=== PATIENT | female | born 1990 | race Caucasian/White ===

== ENCOUNTER 2023-06-21 15:48 | Emergency (ER) | payer OTHER, SELFPAY ==
[2023-06-21 15:48] VITALS: BMI 26.9
[2023-06-21 15:50] VITALS: BP 126/88
[2023-06-21 16:15] LABS: % Basophils 0.5 % (0-2); % Eosinophils 0.7 % (0-6); % Immature Granulocytes 0.1 % (0-0.5); % Lymphocytes 37.6 % (20.5-51.1); % Monocytes 6.8 % (1.7-9.3); % Neutrophils 54.3 % (42.2-75.2); Absolute Eosinophils 0.1 10^3/uL (0-0.7); Absolute Lymphocytes 3.3 10^3/uL (1.2-3.4); Absolute Monocytes 0.6 10^3/uL (0.1-0.6); Absolute Neutrophils 4.8 10^3/uL (1.4-6.5); Hemoglobin 13.8 g/dL (12.0-16.0); Mean Corp Hgb Conc. 35.4 g/dL (33.0-37.0); Mean Corpuscular Hgb 32.2 pg (27.0-31.0); Mean Corpuscular Volume 90.9 fL (81.0-99.0); Mean Platelet Volume 9.5 fL (7.4-10.4); Nucleated Red Blood Cells % 0 %; Platelet Count 341 10^3/uL (130-400); Red Blood Cell Count 4.29 10^6/uL (4.20-5.40); Red Cell Dist. Width 12.8 % (11.5-14.5); White Blood Cell Count 8.9 10^3/uL (4.8-10.8)
[2023-06-21 16:18] LABS: Urine Albumin Negative (Neg - Trace); Urine Bilirubin Negative (Negative); Urine Character Clear (Clear); Urine Color Yellow; Urine Glucose Negative (Negative); Urine Ketone Negative (Negative); Urine Leukocyte Negative (Negative); Urine Nitrite Negative (Negative); Urine Occult Blood Negative (Negative); Urine Specific Gravity 1.015 (<1.030); Urine Urobilinogen Negative (Neg - 1+)
[2023-06-21 16:27] LABS: HCG, Serum Qualitative Screen Negative
[2023-06-21 16:30] LABS: ALT (SGPT) 12 U/L (0-35); AST (SGOT) 22 U/L (14-36); Albumin 4.4 g/dl (3.5-5.0); Alkaline Phosphatase 52 U/L (38-126); Blood Urea Nitrogen 14 mg/dl (7-17); Calcium 9.9 mg/dl (8.4-10.2); Carbon Dioxide 25 mmol/L (22-30); Chloride 100 mmol/L (98-107); Glucose 103 mg/dl (70-99); Potassium 4.7 mmol/L (3.5-5.1); Sodium 134 mmol/L (135-145); Total Bilirubin 0.7 mg/dl (0.2-1.3); eGFR > 60.00
[2023-06-21 16:31] LABS: Lipase 168 U/L (23-300)
[2023-06-21] MEDS: OMNIPAQUE 50 ML PO (17:53)
[2023-06-21] MEDS: MORPHINE SULFATE 2 MG IV ×2 (17:55→19:45)
[2023-06-21] MEDS: ZOFRAN 4 MG IV (17:56)
[2023-06-21] MEDS: NSS 500 IV (17:56)
[2023-06-21] MEDS: PROTONIX IV 40 MG IV (17:56)
[2023-06-21 17:59] VITALS: BP 117/73
[2023-06-21 18:00] VITALS: BP 116/67
--- NOTE | 2023-06-21 18:34 | ED.GENMED ---
History of Present Illness
General
Chief Complaint: Abdominal Pain
Source: patient
Exam Limitations: none
Time Seen by Provider: 06/21/23 17:28
Nursing documentation reviewed up to this point in time: agreed with
Travel History
Have you had any contact with someone who has COVID-19?: No
Do you have any symptoms of coronavirus? Fever > 100 degrees, chills, cough, shortness of breath, sore throat, loss of taste or smell, muscle aches, or headache?: No
History of Present Illness
History of Present Illness:
Patient presents to ED secondary to persistent abdominal pain since yesterday afternoon. Abdominal pain described as crampy, around bellybutton, without any alleviating or exacerbating factors. Denies fever or chills. Denies nausea, vomiting, or
diarrhea. Denies trauma. Denies recent illness. Denies recent change in medications or diet. Of note, patient states that she has had ongoing intermittent abdominal pain, blood pressure from today, for the past 6 months. Patient has been
evaluated multiple times by her primary care physician without identification of etiology behind her pain.
Review of Systems
Review of Systems
Allergies reviewed?: Yes
All Other Systems: ROS reviewed and negative except as documented in HPI and ROS
Constitutional: Reports no symptoms
EENT: Reports no symptoms
Respiratory: Reports no symptoms
Cardiac: Reports no symptoms
ABD/GI: Reports abdominal pain; Denies vomiting or diarrhea
Musculoskeletal: Reports no symptoms
Skin: Reports no symptoms
Neurological: Reports no symptoms
Phy Exam
Physical Exam
Physical Exam:
Physical Exam
General: mild painful distress, not acutely ill. afebrile
Head: nc/at. eomi
Neck: supple. no meningeal signs.
Heart: s1/s2 regular rate and rhythm, no murmur. equal radial pulses.
Lungs: no acute respiratory distress. clear bilaterally
Abdomen: normal bowel sounds. mild periumbilical/RLQ tenderness to palpation.
Neuro: alert and oriented. no focal neurological deficits
Skin: no rash
Psychiatric: well kept. interactive and cooperative
Extremities: no edema. no calf tenderness.
Course
Orders/Labs/Results
Orders:
Orders
06/21/23 15:55
Test Result ONCE
06/21/23 16:03
CBC/With Diff [Complete Blood Count/With Diff] Urgent
CMP [Comprehensive Metabolic Panel] Urgent
HCG, Serum Qualitative Screen Urgent
Lipase Urgent
Urinalysis Reflex To Culture Urgent
Date Specimen was Collected: 06/21/23
Time Specimen was Collected: 15:56
06/21/23 17:45
CT Abd/pel W Iv And Oral Contr Urgent
Comment:
Reason For Exam: lower abdominal pain
Iohexol [Omnipaque] See Protocol PO NOW STA
Morphine Sulfate 2 mg IV NOW STA
Ondansetron Injectable [Zofran] 4 mg IV NOW STA
Pantoprazole [Protonix IV] 40 mg IV NOW STA
06/21/23 17:46
0.9% Sodium Chloride 500 ml [Nss] 500 ml IV BOLUS
06/21/23 19:40
Morphine Sulfate 2 mg IV NOW STA
Abnormal Lab Results
06/21/23
16:03
MCH 32.2 H pg
(27.0-31.0)
Sodium 134 L mmol/L
(135-145)
Glucose 103 H mg/dl
(70-99)
06/21/23 16:03
06/21/23 16:03
Vital Signs
Initial and Last Documented VS:
Initial Vital Signs
Temp Pulse Resp BP Pulse Ox
98.3 F 74 18 126/88 100
06/21/23 15:50 06/21/23 15:50 06/21/23 15:50 06/21/23 15:50 06/21/23 15:50
Last Documented Vital Signs
Temp Pulse Resp BP Pulse Ox
98.3 F 82 18 122/76 100
06/21/23 15:50 06/21/23 21:13 06/21/23 17:59 06/21/23 21:13 06/21/23 19:52
MDM/Problems Addressed
MDM/Problems Addressed:
CT scan report reviewed and discussed with patient. Patient states that she has an [employer] physician with whom she can follow-up as an outpatient. As such, patient given copy of blood work, CT report, as well as the actual CT scan on a disc prior
to discharge. Otherwise, patient is afebrile, hemodynamically stable, and nontoxic-appearing at time of discharge.
*Critical Care Note
Total Time (30-74mins, 75-104mins- exclusive of procedures): Not Applicable
ED Attending Note
-
Portions of this chart may have been created with voice recognition software.� Occasional wrong word or��sound alike� substitutions may have occurred due to the inherent limitations of voice recognition software.
Discharge Plan
Departure
Patient Disposition: Home (Routine Discharge)
Date of Disposition: 06/21/23
Time of Disposition: 21:08
Patient with high blood pressure during this ER visit?: Yes
Discharge Problem:
Abdominal pain, Mass of ovary
Instructions: Abdominal Pain
Referrals:
Diana Wick CRNP [Family Provider] -
Activity Restrictions/Additional Instructions:
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
Interventions
Interventions:
*Risk Screen - Suicide Last Done: 06/21/23 15:50
*General Assessment Last Done: 06/21/23 15:50
*Neglect/Abuse Screening Last Done: 06/21/23 15:50
ED- Fall Risk Assessment Last Done: 06/21/23 18:15
*ED COVID-19 Vaccine History Last Done: 06/21/23 15:50
*Nursing Disposition Last Done: 06/21/23 21:13
JP-Blwmkg-Eovyginsjt Assessment Last Done: 06/21/23 18:15
Discharge Date and Time
Discharge Date/Time: 06/21/23 21:13
[2023-06-21 19:51] VITALS: BP 125/77
[2023-06-21 20:48] VITALS: BP 122/76
[2023-06-21 21:13] VITALS: BP 122/76
== END 2023-06-21 21:13 | disposition home or self-care (01) ==
LOC: EMR 15:48
PROVIDERS: Emergency Medicine; EMERGENCY PHYSICIAN Emergency Medicine; FAMILY PHYSICIAN Family Medicine Adult Medicine
DX: R10.33 Periumbilical pain (principal); N83.9 Noninflammatory disorder of ovary, fallopian tube and broad ligament, unspecified; R03.0 Elevated blood-pressure reading, without diagnosis of hypertension
CPT/HCPCS: 99285; 96374; 96375 ×2; 96361; 96376; 74177; 80053; 81003; 83690; 84703; 85025; Q9967

== ENCOUNTER → 2023-09-21 10:34 | Outpatient (REF) | payer OTHER, SELFPAY | LOC: RAD 10:34 | PROVIDERS: ATTENDING PHYSICIAN Urology; FAMILY PHYSICIAN Family Medicine Adult Medicine | DX: N13.4 Hydroureter (principal); R10.9 Unspecified abdominal pain | CPT/HCPCS: 78708; A9539 ==

== ENCOUNTER 2023-10-19 15:20 | Outpatient (RCR) | payer OTHER, SELFPAY | END 2023-10-19 23:59 | disposition home or self-care (01) | LOC: RPT 15:20 | PROVIDERS: ATTENDING PHYSICIAN Urology | DX: M62.89 Other specified disorders of muscle (principal); N81.6 Rectocele; R39.89 Other symptoms and signs involving the genitourinary system; K59.09 Other constipation; R12 Heartburn; Z73.6 Limitation of activities due to disability | CPT/HCPCS: 97140; 97163; 97530 ==

== ENCOUNTER 2023-10-31 14:14 | Outpatient (RCR) | payer OTHER, SELFPAY | END 2023-11-01 13:04 | disposition home or self-care (01) | LOC: RPT 14:14 | PROVIDERS: ATTENDING PHYSICIAN Urology | DX: M62.89 Other specified disorders of muscle (principal); N81.6 Rectocele; R39.89 Other symptoms and signs involving the genitourinary system; K59.09 Other constipation; R12 Heartburn; R10.2 Pelvic and perineal pain; Z73.6 Limitation of activities due to disability | CPT/HCPCS: 97140; 97530 ==

== ENCOUNTER 2023-12-08 06:22 | Outpatient (RCR) | payer OTHER, SELFPAY | END 2023-12-08 23:59 | disposition home or self-care (01) | LOC: RPT 06:22 | PROVIDERS: ATTENDING PHYSICIAN Urology | DX: R10.2 Pelvic and perineal pain (principal); R30.0 Dysuria; M62.89 Other specified disorders of muscle; Z73.6 Limitation of activities due to disability | CPT/HCPCS: 97163; 97530 ==

== ENCOUNTER 2024-02-07 15:01 | Outpatient (RCR) | payer OTHER, SELFPAY | END 2024-02-07 23:59 | disposition home or self-care (01) | LOC: RPT 15:01 | PROVIDERS: ATTENDING PHYSICIAN Urology | DX: R10.2 Pelvic and perineal pain (principal); R30.0 Dysuria; M62.89 Other specified disorders of muscle; Z73.6 Limitation of activities due to disability | CPT/HCPCS: 97110; 97140; 97530 ==

== ENCOUNTER 2024-03-09 09:24 | Outpatient (RCR) | payer OTHER, SELFPAY | END 2024-03-09 23:59 | disposition home or self-care (01) | LOC: RPT 09:24 | PROVIDERS: ATTENDING PHYSICIAN Urology | DX: R10.2 Pelvic and perineal pain (principal); R30.0 Dysuria; M62.89 Other specified disorders of muscle; Z73.6 Limitation of activities due to disability; N81.6 Rectocele | CPT/HCPCS: 97110; 97530 ==

== ENCOUNTER 2024-03-12 06:37 | Day surgery (SDC) | payer OTHER, SELFPAY ==
[2024-03-09 11:05] VITALS: BMI 28.7
[2024-03-09 11:21] LABS: Urine Albumin Negative (Neg - Trace); Urine Bilirubin Negative (Negative); Urine Character Clear (Clear); Urine Color Yellow; Urine Glucose Negative (Negative); Urine Ketone Negative (Negative); Urine Leukocyte Negative (Negative); Urine Nitrite Negative (Negative); Urine Occult Blood Negative (Negative); Urine Specific Gravity 1.015 (<1.030); Urine Urobilinogen Negative (Neg - 1+)
[2024-03-12 11:15] VITALS: BP 100/69
[2024-03-12 11:24] VITALS: BMI 28.7
[2024-03-12] MEDS: EMEND 40 MG PO (11:52)
[2024-03-12] MEDS: TRANSDERM-SCOP 1 PATCH TRANSDERM (11:52)
[2024-03-12 12:28] VITALS: BP 100/69; BP 101/50
[2024-03-12] MEDS: DILAUDID 0.5 MG IV (12:41)
[2024-03-12] MEDS: ZOFRAN 4 MG IV (12:45)
[2024-03-12] MEDS: DILAUDID 0.25 MG IV (13:04)
[2024-03-12] MEDS: Pyridium 200 MG PO (13:09)
[2024-03-12 13:20] VITALS: BP 106/62
[2024-03-12] MEDS: VALIUM 5 MG PO (13:33)
[2024-03-12 13:44] VITALS: BP 108/71
[2024-03-12] MEDS: MOTRIN 600 MG PO (13:47)
[2024-03-12 14:07] VITALS: BP 105/69
== END 2024-03-12 14:20 | disposition home or self-care (01) ==
LOC: SDS 06:37
PROVIDERS: ATTENDING PHYSICIAN Urology; FAMILY PHYSICIAN Student in an Organized Health Care Education/Training Program
PROC: 0T7B8ZZ Dilation of Bladder, Via Natural or Artificial Opening Endoscopic (ICD-10-PCS; 2024-03-12)
DX: N30.10 Interstitial cystitis (chronic) without hematuria (principal)
CPT/HCPCS: 52260; 36415; 81003

== ENCOUNTER 2024-04-24 07:38 | Outpatient (RCR) | payer OTHER, SELFPAY | END 2024-04-24 23:59 | disposition home or self-care (01) | LOC: RPT 07:38 | PROVIDERS: ATTENDING PHYSICIAN Urology; REFERRING PHYSICIAN Obstetrics & Gynecology Gynecology | DX: M62.89 Other specified disorders of muscle (principal); R10.2 Pelvic and perineal pain; K59.00 Constipation, unspecified; N30.10 Interstitial cystitis (chronic) without hematuria; Z73.6 Limitation of activities due to disability | CPT/HCPCS: 97140; 97163; 97530 ==

== ENCOUNTER 2024-05-23 15:06 | Outpatient (RCR) | payer OTHER, SELFPAY | END 2024-05-23 23:59 | disposition home or self-care (01) | LOC: RPT 15:06 | PROVIDERS: ATTENDING PHYSICIAN Urology; REFERRING PHYSICIAN Obstetrics & Gynecology Gynecology | DX: M62.89 Other specified disorders of muscle (principal); R10.2 Pelvic and perineal pain; K59.00 Constipation, unspecified; N30.10 Interstitial cystitis (chronic) without hematuria; Z73.6 Limitation of activities due to disability | CPT/HCPCS: 97140; 97530 ==

== ENCOUNTER 2024-06-08 15:07 | Emergency (ER) | payer OTHER, SELFPAY ==
[2024-06-08 15:10] VITALS: BP 93/59
[2024-06-08 15:15] VITALS: BMI 29.4
[2024-06-08 15:47] LABS: % Basophils 0.8 % (0-2); % Eosinophils 1.1 % (0-6); % Immature Granulocytes 0.6 % (0-0.5); % Lymphocytes 41.3 % (20.5-51.1); % Monocytes 7.8 % (1.7-9.3); % Neutrophils 48.4 % (42.2-75.2); Absolute Basophils 0.1 10^3/uL (0-0.2); Absolute Eosinophils 0.1 10^3/uL (0-0.7); Absolute Lymphocytes 2.7 10^3/uL (1.2-3.4); Absolute Monocytes 0.5 10^3/uL (0.1-0.6); Absolute Neutrophils 3.1 10^3/uL (1.4-6.5); Hematocrit 38.1 % (37.0-47.0); Hemoglobin 13.3 g/dL (12.0-16.0); Mean Corp Hgb Conc. 34.9 g/dL (33.0-37.0); Mean Corpuscular Hgb 32.4 pg (27.0-31.0); Mean Corpuscular Volume 92.7 fL (81.0-99.0); Mean Platelet Volume 9.7 fL (7.4-10.4); Nucleated Red Blood Cells % 0 %; Platelet Count 315 10^3/uL (130-400); Red Blood Cell Count 4.11 10^6/uL (4.20-5.40); Red Cell Dist. Width 13.2 % (11.5-14.5); White Blood Cell Count 6.4 10^3/uL (4.8-10.8)
[2024-06-08 15:52] LABS: ALT (SGPT) 15 U/L (0-35); AST (SGOT) 20 U/L (14-36); Albumin 4.3 g/dl (3.5-5.0); Alkaline Phosphatase 57 U/L (38-126); Blood Urea Nitrogen 11 mg/dl (7-17); Calcium 8.6 mg/dl (8.4-10.2); Carbon Dioxide 22 mmol/L (22-30); Chloride 102 mmol/L (98-107); Estimated Creatinine Clearance 113 ml/min; Glucose 96 mg/dl (70-99); Potassium 4.2 mmol/L (3.5-5.1); Sodium 135 mmol/L (135-145); Total Bilirubin 0.8 mg/dl (0.2-1.3); Total Protein 6.8 g/dl (6.3-8.2); eGFR > 60.00
--- NOTE | 2024-06-08 15:57 | ED.GENMED ---
History of Present Illness
<Hoa Roland, BUTTING SAW OPERATOR - Last Filed: 06/10/24 16:48>
General
Chief Complaint: Chest Pain
Source: patient
Exam Limitations: none
Time Seen by Provider: 06/08/24 15:39
Nursing documentation reviewed up to this point in time: agreed with
History of Present Illness
History of Present Illness:
34-year-old female with history of migraines, MVP, herpes, PTSD, depression, anxiety, pelvic floor dysfunction, rectocele presents for chest pain that radiates through to her back just below the scapula which started 7 PM last evening. It is worse
with movement or deep breaths, it is 7/10 now and she has taken nothing for pain today. She feels nauseous but has not vomited. Her 15-year-old daughter had recent URI. No recent travel.
Past History
<Hoa Roland, BUTTING SAW OPERATOR - Last Filed: 06/10/24 16:48>
Past History
ED Past Medical History: Psychiatric (Anxiety/depression, PTSD), Other (migraines), Other (On Valtrex daily for herpes) and Other (Migraines, pelvic floor dysfunction, rectocele)
ED Past Surgical History: Gynecological
Review of Systems
<Hoa Roland, BUTTING SAW OPERATOR - Last Filed: 06/10/24 16:48>
Review of Systems
Allergies reviewed?: Yes
All Other Systems: ROS reviewed and negative except as documented in HPI and ROS
Constitutional: Denies fever or chills
EENT: Denies sore throat
Respiratory: Denies cough or trouble breathing
Cardiac: Reports chest pain; Denies diaphoresis or palpitations
ABD/GI: Reports nausea; Denies abdominal pain, vomiting or diarrhea
: Denies dysuria, frequency, difficulty voiding or urgency
Musculoskeletal: Reports no symptoms
Skin: Reports no symptoms
Neurological: Reports no symptoms
Phy Exam
<Hoa Roland, BUTTING SAW OPERATOR - Last Filed: 06/10/24 16:48>
Physical Exam
Physical Exam:
GENERAL: No acute distress. A&Ox3.
CONSTITUTIONAL: Afebrile.
EYES: clear, conjunctivae normal
ENMT: moist mucus membranes, Pharynx nl
RESPIRATORY: Regular respirations, nonlabored, lungs clear.
CARDIOVASCULAR: Regular rate and rhythm, no murmurs, no rubs. Left upper chest wall tender to palpate
GI: Soft, nontender, normal BS
MUSCULOSKELETAL: Moves with ease. Well perfused.
SKIN: Warm, dry, pink
PSYCH: Depressed mood and affect. Well kept, interactive and appropriate
NEUROLOGIC: Awake, alert and oriented. No focal neurological deficits
Scores
<MERCEDES VinesNP - Last Filed: 06/08/24 21:29>
Heart Score for Chest Pain Patients
STEMI patient?: Not applicable
Course
<Hoa Roland, BUTTING SAW OPERATOR - Last Filed: 06/10/24 16:48>
Orders/Labs/Results
Orders:
Orders
06/08/24 15:09
Electrocardiogram (*1) Urgent
Reason for Study: Chest Pain
EKG- Treatment ONCE
06/08/24 15:19
Complete Blood Count/With Diff Urgent
Comprehensive Metabolic Panel Urgent
06/08/24 15:40
CR Chest - 2 Views Urgent
Comment:
Reason For Exam: chest pain
06/08/24 15:57
Ketorolac [Toradol] 15 mg IV NOW STA
06/08/24 16:10
COVID-19 Antigen Urgent
Source: Nasal Swab
Troponin I Urgent
Influenza A+B Rapid Molecular Urgent
RICK Source: Nasal Swab
Specimen Description:
06/08/24 16:12
0.9% Sodium Chloride 500 ml [Nss] 500 ml IV BOLUS
06/08/24 18:02
D-Dimer Urgent
06/08/24 18:44
CT Chest PE Study Urgent
Comment:
Reason For Exam: elevated dimer, left upper chest and scapula pain
06/08/24 21:28
Acetaminophen [Tylenol] 1,000 mg PO NOW STA
Abnormal Lab Results
06/08/24 06/08/24
15:19 18:02
RBC 4.11 L 10^6/uL
(4.20-5.40)
MCH 32.4 H pg
(27.0-31.0)
Immature Gran % 0.6 H %
(0-0.5)
D-Dimer 1.04 H ug/mlFEU
(0.00-0.50)
06/08/24 15:19
06/08/24 15:19
Vital Signs
Initial and Last Documented VS:
Initial Vital Signs
Temp Pulse Resp BP Pulse Ox
97.9 F 93 18 93/59 97
06/08/24 15:10 06/08/24 15:10 06/08/24 15:10 06/08/24 15:10 06/08/24 15:10
Last Documented Vital Signs
Temp Pulse Resp BP Pulse Ox
97.9 F 78 17 95/49 100
06/08/24 15:10 06/08/24 17:00 06/08/24 17:00 06/08/24 17:00 06/08/24 17:00
<SYD Vines - Last Filed: 06/08/24 21:29>
Orders/Labs/Results
Orders:
Orders
06/08/24 15:09
Electrocardiogram (*1) Urgent
Reason for Study: Chest Pain
EKG- Treatment ONCE
06/08/24 15:19
Complete Blood Count/With Diff Urgent
Comprehensive Metabolic Panel Urgent
06/08/24 15:40
CR Chest - 2 Views Urgent
Comment:
Reason For Exam: chest pain
06/08/24 15:57
Ketorolac [Toradol] 15 mg IV NOW STA
06/08/24 16:10
COVID-19 Antigen Urgent
Source: Nasal Swab
Troponin I Urgent
Influenza A+B Rapid Molecular Urgent
RICK Source: Nasal Swab
Specimen Description:
06/08/24 16:12
0.9% Sodium Chloride 500 ml [Nss] 500 ml IV BOLUS
06/08/24 18:02
D-Dimer Urgent
06/08/24 18:44
CT Chest PE Study Urgent
Comment:
Reason For Exam: elevated dimer, left upper chest and scapula pain
06/08/24 21:28
Acetaminophen [Tylenol] 1,000 mg PO NOW STA
Abnormal Lab Results
06/08/24 06/08/24
15:19 18:02
RBC 4.11 L 10^6/uL
(4.20-5.40)
MCH 32.4 H pg
(27.0-31.0)
Immature Gran % 0.6 H %
(0-0.5)
D-Dimer 1.04 H ug/mlFEU
(0.00-0.50)
06/08/24 15:19
06/08/24 15:19
Vital Signs
Initial and Last Documented VS:
Initial Vital Signs
Temp Pulse Resp BP Pulse Ox
97.9 F 93 18 93/59 97
06/08/24 15:10 06/08/24 15:10 06/08/24 15:10 06/08/24 15:10 06/08/24 15:10
Last Documented Vital Signs
Temp Pulse Resp BP Pulse Ox
97.9 F 78 17 95/49 100
06/08/24 15:10 06/08/24 17:00 06/08/24 17:00 06/08/24 17:00 06/08/24 17:00
<Hoa Roland NP - Last Filed: 06/10/24 16:48>
MDM/Problems Addressed
Differential Diagnosis Includes:
costochondritis, musculoskeletal pain
MDM/Problems Addressed:
34-year-old female with history of migraines, MVP, herpes, PTSD, depression, anxiety, pelvic floor dysfunction, rectocele presents for chest pain that radiates through to her back just below the scapula which started 7 PM last evening. It is worse
with movement or deep breaths, it is 7/10 now and she has taken nothing for pain today. She feels nauseous but has not vomited. Her 15-year-old daughter had recent URI. No recent travel.
EKG: NSR
No risk factors for PE, no tachycardia, hypoxia, SOB,
4:00 PM:
CBC normal
CMP normal
COVID-negative
Influenza negative
Troponin within normal limits
5:50 p.m.
CXR radiology report read: No acute cardiopulmonary process.
6:45 PM:
D-dimer elevated at 1.04, chest PE study ordered
Case discussed with Sharri Ornelas NP who will assume care from this point.
Chronic conditions affecting care: Psychiatric illness (anxiety, PTSD, depression) and Other (mitral valve prolapse)
<SYD Vines - Last Filed: 06/08/24 21:29>
MDM/Problems Addressed
MDM/Problems Addressed:
34-year-old female with history of migraines, MVP, herpes, PTSD, depression, anxiety, pelvic floor dysfunction, rectocele presents for chest pain that radiates through to her back just below the scapula which started 7 PM last evening. It is worse
with movement or deep breaths, it is 7/10 now and she has taken nothing for pain today. She feels nauseous but has not vomited. Her 15-year-old daughter had recent URI. No recent travel.
EKG: NSR
No risk factors for PE, no tachycardia, hypoxia, SOB,
4:00 PM:
CBC normal
CMP normal
COVID-negative
Influenza negative
Troponin within normal limits
5:50 p.m.
CXR radiology report read: No acute cardiopulmonary process.
6:45 PM:
D-dimer elevated at 1.04, chest PE study ordered
Case discussed with Sharri Ornelas NP who will assume care from this point
Assumed care of patient no acute distress nontachycardic nonhypoxic,. She reports pain is only when she is depressed or moves or sneezes. Likely muscular will discharge with alternating between ibuprofen and Tylenol she is to return if any
worsening symptoms.
<Hoa Roland NP - Last Filed: 06/10/24 16:48>
*EKG
EKG Intrepretation Date: 06/08/24
Interpretation: normal
Heart Rate: 90
Rate: normal
Rhythm: sinus
[place]: normal axis
Interval: normal interval
QRS Pattern: normal QRS
Ischemia: no ischemia
<SYD Vines - Last Filed: 06/08/24 21:29>
*Radiology
Radiology exam reviewed: radiology read reviewed
*Pulse Oximetry
Patient hypoxic: no
*EKG
Interpreted by ED Provider?: Yes
*Critical Care Note
Total Time (30-74mins, 75-104mins- exclusive of procedures): Not Applicable
ED Attending Note
<Hoa Roland NP - Last Filed: 06/10/24 16:48>
-
Portions of this chart may have been created with voice recognition software.� Occasional wrong word or��sound alike� substitutions may have occurred due to the inherent limitations of voice recognition software.
Discharge Plan
Departure
Patient Disposition: Home (Routine Discharge)
Date of Disposition: 06/08/24
Time of Disposition: 21:27
Patient with high blood pressure during this ER visit?: No
Condition: Good
Covid-19: Negative COVID-19
Discharge Problem:
Atypical chest pain
Instructions: Chest Pain That Is Not Caused by the Heart (DC), Costochondritis (DC)
Prescriptions:
No Action
clonidine HCl 0.1 mg Tablet
0.1 mg PO BID PRN (Reason: racing thoughts/anxiety)
clonidine HCl 0.1 mg Tablet
0.2 mg PO HS
valacyclovir [Valtrex] 1 gram Tablet
1,000 mg PO DAILY
ondansetron HCl [Zofran] 8 mg Tablet
8 mg PO Q8H PRN (Reason: nausea)
gabapentin 400 mg Capsule
400 mg PO TID
estradiol [Vivelle-Dot] 0.1 mg/24 hr Patch Semiweekly
1 patch TRANSDERMAL .
clonazepam [Klonopin] 1 mg Tablet
1 - 2 mg PO PRN PRN (Reason: anxiety)
clonazepam [Klonopin] 2 mg Tablet
2 mg PO HS
promethazine 25 mg Tablet
25 mg PO PRN PRN (Reason: with nurtec for migraines)
estradiol [Vivelle-Dot] 0.0375 mg/24 hr Patch Semiweekly
1 patch TRANSDERMAL .
naproxen 500 mg Tablet
500 mg PO PRN PRN (Reason: pain)
escitalopram oxalate [Lexapro] 20 mg Tablet
20 mg PO DAILY
Vraylar 1.5 mg Capsule
1.5 mg PO DAILY
Nurtec ODT 75 mg Tablet,Disintegrating
75 mg PO PRN PRN (Reason: migraines)
Wegovy 0.25 mg/0.5 mL Pen Injector
0.25 mg SC FR
cholecalciferol (vitamin D3) [Vitamin D3] 50 mcg (2,000 unit) Capsule
50 mcg PO DAILY
mecobalamin (vitamin B12) [B12 Active] 1,000 mcg Tablet,Chewable
1,000 mcg PO DAILY
Referrals:
Waylon Brenner MD [Family Provider] - As needed
Activity Restrictions/Additional Instructions:
As we discussed, you may have costochondritis caused by a viral illness, your workup here today shows nothing worrisome.
Ibuprofen 600 mg, with food, every 6 hours as needed for pain. You may alternate with Tylenol.
Follow-up with your family doctor in the next several days for reevaluation. Return if any worsening of symptoms.
Interventions
Interventions:
*Risk Screen - Suicide Last Done: 06/08/24 15:14
*General Assessment Last Done: 06/08/24 15:14
*Neglect/Abuse Screening Last Done: 06/08/24 15:14
*ED COVID-19 Vaccine History Last Done: 06/08/24 15:14
*Nursing Disposition Last Done: 06/08/24 21:59
ED- Cardiac Assessment Last Done: 06/08/24 15:16
Discharge Date and Time
Discharge Date/Time: 06/08/24 21:59
Print Language: NAURUAN
[2024-06-08 16:00] VITALS: BP 86/52
[2024-06-08] MEDS: TORADOL 15 MG IV (16:07)
[2024-06-08] MEDS: NSS 500 IV (16:14)
[2024-06-08 16:38] VITALS: BP 96/52
[2024-06-08 16:42] LABS: Troponin I < 0.012 ng/ml
[2024-06-08 16:55] LABS: COVID-19 Antigen Negative (Negative)
[2024-06-08 17:00] VITALS: BP 95/49
[2024-06-08 18:26] LABS: D-Dimer 1.04 ug/mlFEU (0.00-0.50)
[2024-06-08] MEDS: TYLENOL 1000 MG PO (21:33)
== END 2024-06-08 21:59 | disposition home or self-care (01) ==
LOC: EMR 15:07
PROVIDERS: Registered Nurse; EMERGENCY PHYSICIAN Emergency Medicine; FAMILY PHYSICIAN Family Medicine
DX: R07.89 Other chest pain (principal); I34.1 Nonrheumatic mitral (valve) prolapse; F43.10 Post-traumatic stress disorder, unspecified; F41.8 Other specified anxiety disorders
CPT/HCPCS: 99284; 71046; 71275; 80053; 84484; 85025; 85379; 87502; 87811; 93005; Q9967

== ENCOUNTER 2024-06-22 12:49 | Outpatient (RCR) | payer OTHER, SELFPAY | END 2024-06-22 23:59 | disposition home or self-care (01) | LOC: RPT 12:49 | PROVIDERS: ATTENDING PHYSICIAN Urology; REFERRING PHYSICIAN Obstetrics & Gynecology Gynecology | DX: M62.89 Other specified disorders of muscle (principal); R10.2 Pelvic and perineal pain; K59.00 Constipation, unspecified; N30.10 Interstitial cystitis (chronic) without hematuria; Z73.6 Limitation of activities due to disability | CPT/HCPCS: 97110; 97140; 97530 ==

== ENCOUNTER 2024-07-05 15:08 | Outpatient (RCR) | payer OTHER, SELFPAY | END 2024-07-05 23:59 | disposition home or self-care (01) | LOC: RPT 15:08 | PROVIDERS: ATTENDING PHYSICIAN Urology; REFERRING PHYSICIAN Obstetrics & Gynecology Gynecology | DX: M62.89 Other specified disorders of muscle (principal); R10.2 Pelvic and perineal pain; K59.00 Constipation, unspecified; N30.10 Interstitial cystitis (chronic) without hematuria; Z73.6 Limitation of activities due to disability | CPT/HCPCS: 97110; 97112; 97530 ==

== ENCOUNTER 2024-08-16 11:12 | Outpatient (RCR) | payer OTHER, SELFPAY | END 2024-08-16 23:59 | disposition home or self-care (01) | LOC: RPT 11:12 | PROVIDERS: ATTENDING PHYSICIAN Urology | DX: M62.89 Other specified disorders of muscle (principal); R10.2 Pelvic and perineal pain; R33.9 Retention of urine, unspecified; Z73.6 Limitation of activities due to disability; Z98.890 Other specified postprocedural states | CPT/HCPCS: 97140; 97163; 97530 ==

== ENCOUNTER 2024-10-18 11:52 | Outpatient (RCR) | payer OTHER, SELFPAY | END 2024-10-18 23:59 | disposition home or self-care (01) | LOC: RPT 11:52 | PROVIDERS: ATTENDING PHYSICIAN Urology | DX: M62.89 Other specified disorders of muscle (principal); R10.2 Pelvic and perineal pain; R33.9 Retention of urine, unspecified; Z73.6 Limitation of activities due to disability; Z98.890 Other specified postprocedural states | CPT/HCPCS: 97110; 97112; 97140; 97530 ==

== ENCOUNTER 2024-11-08 12:06 | Outpatient (RCR) | payer OTHER, SELFPAY | END 2024-11-08 23:59 | disposition home or self-care (01) | LOC: RPT 12:06 | PROVIDERS: ATTENDING PHYSICIAN Urology | DX: M62.89 Other specified disorders of muscle (principal); R10.2 Pelvic and perineal pain; R33.9 Retention of urine, unspecified; Z73.6 Limitation of activities due to disability; Z98.890 Other specified postprocedural states | CPT/HCPCS: 97010; 97110; 97140; 97530 ==

== ENCOUNTER 2024-12-03 06:18 | Day surgery (SDC) | payer OTHER, SELFPAY | END 2024-12-03 14:29 | disposition home or self-care (01) | LOC: GI 06:18 | PROVIDERS: ATTENDING PHYSICIAN Internal Medicine | DX: R10.13 Epigastric pain (principal); K29.70 Gastritis, unspecified, without bleeding | CPT/HCPCS: 43239; 88305; 88342 ==

== ENCOUNTER → 2025-01-14 14:02 | Outpatient (REF) | payer OTHER, SELFPAY | LOC: HWRCS 14:02 | PROVIDERS: ATTENDING PHYSICIAN Internal Medicine | DX: R00.2 Palpitations (principal); I34.1 Nonrheumatic mitral (valve) prolapse; R06.09 Other forms of dyspnea | CPT/HCPCS: 93306 ==

== ENCOUNTER 2025-01-16 12:04 | Outpatient (RCR) | payer OTHER, SELFPAY | END 2025-01-16 23:59 | disposition home or self-care (01) | LOC: RPT 12:04 | PROVIDERS: ATTENDING PHYSICIAN Urology | DX: M62.89 Other specified disorders of muscle (principal); R10.2 Pelvic and perineal pain; R33.9 Retention of urine, unspecified; Z73.6 Limitation of activities due to disability; Z98.890 Other specified postprocedural states | CPT/HCPCS: 97014; 97110; 97112; 97140; 97530 ==

== ENCOUNTER 2025-01-21 06:25 | Day surgery (SDC) | payer OTHER, SELFPAY ==
[2025-01-21] VITALS (10 sets, daily range): BP systolic 98–140; BP diastolic 46–68; BMI 27.0
[2025-01-21] MEDS: NORMOSOL-R/PLASMALYTE-A 1000 IV (10:36)
[2025-01-21 10:46] LABS: Urine Character Clear (Clear)
[2025-01-21] MEDS: EMEND 40 MG PO (10:48)
[2025-01-21 11:26] LABS: Urine Red Blood Cell 0-2 /HPF (0-2); Urine White Cell 0-2 /HPF (0-5)
[2025-01-21] MEDS: VALIUM 5 MG PO (13:23)
[2025-01-21] MEDS: SUBLIMAZE 50 MCG IV ×2 (13:27→13:45)
[2025-01-21] MEDS: ROXICODONE 10 MG PO (15:23)
== END 2025-01-21 15:29 | disposition home or self-care (01) ==
LOC: SDS 06:25
PROVIDERS: ATTENDING PHYSICIAN Urology
DX: N30.10 Interstitial cystitis (chronic) without hematuria (principal)
CPT/HCPCS: 52260; 81003; 81015

== ENCOUNTER → 2025-01-30 08:16 | Outpatient (REF) | payer OTHER, SELFPAY | LOC: RAD 08:16 | PROVIDERS: ATTENDING PHYSICIAN Internal Medicine; FAMILY PHYSICIAN Student in an Organized Health Care Education/Training Program | DX: R11.0 Nausea (principal) | CPT/HCPCS: 78264; A9541 ==

== ENCOUNTER 2025-02-05 07:47 | Outpatient (RCR) | payer OTHER, SELFPAY | END 2025-02-05 23:59 | disposition home or self-care (01) | LOC: RPT 07:47 | PROVIDERS: ATTENDING PHYSICIAN Urology | DX: N30.10 Interstitial cystitis (chronic) without hematuria (principal); M62.89 Other specified disorders of muscle; Z73.6 Limitation of activities due to disability; R10.20 Pelvic and perineal pain unspecified side; R15.9 Full incontinence of feces; R35.1 Nocturia; R33.9 Retention of urine, unspecified; R10.24 Suprapubic pain; Z98.890 Other specified postprocedural states | CPT/HCPCS: 97140; 97163; 97530 ==

== ENCOUNTER 2025-02-25 13:36 | Outpatient (RCR) | payer OTHER, SELFPAY | END 2025-02-25 23:59 | disposition home or self-care (01) | LOC: RPT 13:36 | PROVIDERS: ATTENDING PHYSICIAN Urology | DX: R10.2 Pelvic and perineal pain (principal); N30.10 Interstitial cystitis (chronic) without hematuria; M62.89 Other specified disorders of muscle; R10.20 Pelvic and perineal pain unspecified side; Z73.6 Limitation of activities due to disability; R15.9 Full incontinence of feces; R35.1 Nocturia; R33.9 Retention of urine, unspecified; R10.24 Suprapubic pain; Z98.890 Other specified postprocedural states | CPT/HCPCS: 97014; 97110; 97112; 97140; 97530 ==

== ENCOUNTER 2025-04-09 08:52 | Outpatient (RCR) | payer OTHER, SELFPAY | END 2025-04-09 23:59 | disposition home or self-care (01) | LOC: RPT 08:52 | PROVIDERS: ATTENDING PHYSICIAN Urology | DX: N30.10 Interstitial cystitis (chronic) without hematuria (principal); M62.89 Other specified disorders of muscle; R10.20 Pelvic and perineal pain unspecified side; Z73.6 Limitation of activities due to disability; R15.9 Full incontinence of feces; R35.1 Nocturia; R33.9 Retention of urine, unspecified; R10.24 Suprapubic pain; Z98.890 Other specified postprocedural states; R10.2 Pelvic and perineal pain | CPT/HCPCS: 97112; 97140; 97530 ==